=== PATIENT | male | born 1930 | race Caucasian/White ===

== ENCOUNTER 2016-08-08 10:10 | Emergency (ER) | payer MEDICARE, MEDICAID ==
[~2016-08-08] VITALS: Ht 182.9 cm; Wt 90.0 kg
[2016-08-08 10:12] VITALS: BP 131/74; PULSE 73; RESP 14; TEMP 98.8; O2SAT 90
[2016-08-08] MEDS ORDERED: ceFAZolin 2 GM PREMIX 50 ML IV ONE (10:45)
--- NOTE | 2016-08-08 11:04 | PD ---
HPI . Cellulitis Chief Complaint: Skin Problem Time Seen by Provider: 10:22 Travel History International Travel<30 days: No Contact w/Intl Traveler<30days: No Traveled to known affect area: No History of Present Illness HPI This is a patient who has some dementia. History is obtained from his who takes care of him. She states that he suffered some abrasions to his right herrera maybe a week ago. She has been treating them with Neosporin and bandages. She states that they started looking inflamed and infected about 3 days ago. She reports serous drainage. She denies associated fever. She does state that she has noticed penile discharge. He has an indwelling Donald catheter because of a neurogenic bladder. She states that the discharge has been a little bit bloody. PFSH Social History Tobacco Use: No Allergies-Medications (Allergen,Severity, Reaction): Coded Allergies: No Known Allergies (Unverified , 08/08/16) Reported Meds & Prescriptions Reported Meds & Active Scripts Active Reported Atorvastatin (Atorvastatin Calcium) 80 Mg Tab 80 Mg PO HS Multi Vitamin (Multiple Vitamin) 1 Tab Tab 1 Tab PO DAILY Ativan (Lorazepam) 0.5 Mg Tab 0.5 Mg PO TID PRN Aspirin 325 Mg Tab 325 Mg PO DAILY Lactulose Liq (Lactulose) 10 Gm/15 Ml Soln 15 Ml PO DAILY PRN Plavix (Clopidogrel Bisulfate) 75 Mg Tab 75 Mg PO DAILY Levothyroxine (Levothyroxine Sodium) 100 Mcg Tab 100 Mcg PO DAILY Amaryl (Glimepiride) 2 Mg Tab 2 Mg PO DAILY Take with breakfast or first main meal Glucophage (Metformin HCl) 500 Mg Tab 500 Mg PO BID With meals Isosorbide Mononitrate ER (Isosorbide Mononitrate) 60 Mg Tab 120 Mg PO BID Lasix (Furosemide) 40 Mg Tab 40 Mg PO DAILY Lopressor (Metoprolol Tartrate) 50 Mg Tab 50 Mg PO BID Oxycodone (Oxycodone HCl) 5 Mg Cap 5 Mg PO Q4H PRN Oxycontin (Oxycodone HCl) 20 Mg Tab 20 Mg PO TID Rivastigmine 6 Mg Cap 6 Mg PO BID Potassium Chloride ER (Potassium Chloride) 10 Meq Tab 20 Meq PO BID Review of Systems ROS Limitations: Poor Historian Except as stated in HPI: all other systems reviewed are Neg General / Constitutional: No: Fever, Chills Genitourinary: Positive: Discharge Skin: Positive Change in Pigmentation, Positive Lesions Physical Exam Narrative GENERAL: Cooperative demented patient in no acute distress. SKIN: Warm and dry. He has 3 abrasions on his right herrera. 2 of the 3 have some surrounding redness and warmth. I don't see any purulent drainage. HEAD: Atraumatic. Normocephalic. RESPIRATORY: No accessory muscle use. GASTROINTESTINAL: Abdomen soft, non-tender, nondistended. : Normal uncircumcised male. Donald catheter in place. Purulent drainage from the urethral meatus. MUSCULOSKELETAL: No obvious deformities. No edema. NEUROLOGICAL: Awake and alert. No obvious cranial nerve deficits. Motor grossly within normal limits. PSYCHIATRIC: Appropriate mood and affect; pleasantly demented. Data Data Last Documented VS Vital Signs Date Time Temp Pulse Resp B/P Pulse Ox O2 Delivery O2 Flow Rate FiO2 08/08/16 10:12 98.8 73 14 131/74 90 Room Air Orders Urinalysis - C+S If Indicated (08/08/16 10:36) Wound Culture And Gram Stain (08/08/16 10:36) Cefazolin 2 Gm Premix (Ancef 2 Gm Premix (08/08/16 10:45) Urine Culture (08/08/16 11:30) Labs Laboratory Tests Test 08/08/16 11:30 Urine Color YELLOW Urine Turbidity CLOUDY Urine pH 7.0 Urine Specific [place] 1.011 Urine Protein NEG mg/dL Urine Glucose (UA) NEG mg/dL Urine Ketones NEG mg/dL Urine Occult Blood TRACE Urine Nitrite POS Urine Bilirubin NEG Urine Urobilinogen LESS THAN 2.0 MG/DL Urine Leukocyte Esterase LARGE Urine RBC 4 /hpf Urine WBC 46 /hpf Urine WBC Clumps OCC Urine Squamous Epithelial 3 /hpf Cells Urine Amorphous Sediment FEW Urine Bacteria MANY /hpf Microscopic Urinalysis Comment CATH-CULTURE IND MDM Medical Decision Making Medical Screen Exam Complete: Yes Emergency Medical Condition: Yes Medical Record Reviewed: Yes (no previous visits here for review.) Differential Diagnosis My differential diagnosis includes but is not limited to localized wound infection, cellulitis, abscess Narrative Course Patient presents with 2 problems. The first is cellulitis associated with some skin abrasions on his right lower extremity. The second is a penile discharge. UA does show a UTI. I will treat him with Keflex which should cover both the UTI and the cellulitis. Diagnosis Primary Impression: Cellulitis Qualified Code: L03.115 - Cellulitis of right lower extremity Additional Impression: UTI (urinary tract infection) Qualified Code: N30.00 - Acute cystitis without hematuria Patient Instructions: Cellulitis (ED), General Instructions Scripts Cephalexin (Keflex)500 Mg [id number] Mg PO Q8H #30 CAP Ref 0 Prov:Jacinta Hooper MD 08/08/16 Disposition: 01 DISCHARGE HOME Condition: Stable Jacinta Hooper MD Aug 08, 2016 11:04
[2016-08-08 12:09] LABS: BACTERIA, URINE MANY /hpf; BLOOD, URINE TRACE (NEG); GLUCOSE,URINE NEG (NEG); KETONE, URINE NEG (NEG); NITRITE,URINE POS (NEG); SQUAMOUS EPITHELIAL CELL URINE 3 /hpf (0-5); URINE COLOR YELLOW (YELLW/STRAW)
[2016-08-08 12:10] LABS: COMMENT (UR) CATH-CULTURE IND; CULTURE IF INDICATED CATH CULTURE IND
[2016-08-08] MEDS ORDERED: METO-309 PO (12:32)
[2016-08-08] MEDS ORDERED: OXYC1CAP PO (12:32)
[2016-08-08] MEDS ORDERED: POTA10TA2 PO (12:32)
[2016-08-08] MEDS ORDERED: FURO1TAB60 PO (12:32)
[2016-08-08] MEDS ORDERED: LACT10SO PO (12:32)
[2016-08-08] MEDS ORDERED: ASPI325T PO (12:32)
[2016-08-08] MEDS ORDERED: LORA-392 PO (12:32)
[2016-08-08] MEDS ORDERED: LEVO100T5 PO (12:32)
[2016-08-08] MEDS ORDERED: MULT-135 PO (12:32)
[2016-08-08] MEDS ORDERED: ATOR1TAB18 PO (12:32)
[2016-08-08] MEDS ORDERED: ISOS60TA PO (12:32)
[2016-08-08] MEDS ORDERED: OXYC20TA17 PO (12:32)
[2016-08-08] MEDS ORDERED: METF500 PO (12:32)
[2016-08-08] MEDS ORDERED: PLAV75TA29 PO (12:32)
[2016-08-08] MEDS ORDERED: AMAR2TAB PO (12:32)
[2016-08-08] MEDS ORDERED: RIVA6CAP PO (12:32)
[2016-08-08] MEDS ORDERED: CEPH-460 PO (12:35)
== END 2016-08-08 13:28 | disposition home or self-care (01) ==
LOC: NEPA 10:10
DX: L03.115 Cellulitis of right lower limb (principal); N39.0 Urinary tract infection, site not specified; R36.9 Urethral discharge, unspecified; B96.1 Klebsiella pneumoniae [K. pneumoniae] as the cause of diseases classified elsewhere; B96.5 Pseudomonas (aeruginosa) (mallei) (pseudomallei) as the cause of diseases classified elsewhere; B95.2 Enterococcus as the cause of diseases classified elsewhere; B95.0 Streptococcus, group A, as the cause of diseases classified elsewhere; F03.90 Unspecified dementia, unspecified severity, without behavioral disturbance, psychotic disturbance, mood disturbance, and anxiety
CPT/HCPCS: 81001; 86403; 87070; 87077; 87086; 87186; 96365; 99283; J0690; 87205